=== PATIENT | male | born 1950 | race Caucasian/White ===

== ENCOUNTER 2017-10-04 10:06 | Day surgery (SDC) | payer MEDICARE, BC ==
[2017-09-30 10:12] VITALS: BMI 21.7
[~2017-10-04 10:06] MED LIST: LACTATED RINGERS 1,000 ML IV SCH; LIDOCAINE 1% 20 ML VIAL (10MG/ML) FOR IV START INTRADERMA PRN
[2017-10-04 10:41] VITALS: RESP 16; TEMP 97.4
[2017-10-04] MEDS ORDERED: PROPOFOL 10 MG/ML 20 ML VIAL IV ONE (11:16)
--- NOTE | 2017-10-04 11:25 | P.GSHP ---
History of Present Illness H&P Date: 10/04/17 Chief Complaint: Colon cancer screening Patient here today for colonoscopy. No bowel related complaints. Last colonoscopy 9 years ago. Sister was recently diagnosed with colon cancer 3 years ago. Past Medical History Past Medical History: No Reported History History of Any Multi-Drug Resistant Organisms: None Reported Past Surgical History: Orthopedic Surgery Additional Past Surgical History / Comment(s): RT KNEE ARTHROSCOPY, JUAN CATARACTS Past Anesthesia/Blood Transfusion Reactions: No Reported Reaction Smoking Status: Current every day smoker - Past Family History Sister(s) Family Medical History: Cancer Additional Family Medical History / Comment(s): COLON Father Family Medical History: Cancer Additional Family Medical History / Comment(s): PROSTATE,LUNG, BRAIN Brother(s) Family Medical History: Cancer Additional Family Medical History / Comment(s): PROSTATE, ONE BROTHER THYROID, ONE BROTHER BRAIN TUMOR Medications and Allergies Home Medications Medication Instructions Recorded Confirmed Type PARoxetine [Paxil] 20 mg PO DAILY 09/30/17 10/04/17 History Allergies Allergy/AdvReac Type Severity Reaction Status Date / Time codeine Allergy Rash/Hives Verified 10/04/17 10:41 Surgical - Exam Vital Signs Temp Pulse Resp BP Pulse Ox 97.4 F L 68 16 163/92 98 10/04/17 10:40 10/04/17 10:40 10/04/17 10:40 10/04/17 10:40 10/04/17 10:40 Physical exam: General: Well-developed, well-nourished HEENT: Normocephalic, sclerae nonicteric Abdomen: Nontender, nondistended Extremities: No edema Neuro: Alert and oriented Assessment and Plan (1) Colon cancer screening Narrative/Plan: Will proceed with colonoscopy at this time Current Visit: Yes Status: Acute Code(s): Z12.11 - ENCOUNTER FOR SCREENING FOR MALIGNANT NEOPLASM OF COLON SNOMED Code(s): 475490107
--- NOTE | 2017-10-04 11:44 | P.PCN ---
Date of Procedure: 10/04/17 Procedure(s) Performed: PREOPERATIVE DIAGNOSIS: Colon cancer screening POSTOPERATIVE DIAGNOSIS: Sigmoid colon polyp, diverticulosis PROCEDURE: Colonoscopy with snare polypectomy ANESTHESIA: MAC SURGEON: Mehul Wakefield M.D. SPECIMENS: One colon polyp ENDOSCOPIC PROCEDURE: The patient was placed on the endoscopy table in the left decubitus position. The Olympus colonoscope was inserted into the anus and passed under direct visualization to the base of the cecum. The appendiceal orifice was visualized. From that point the scope was slowly withdrawn inspecting all surfaces carefully. There were no neoplastic inflammatory or polypoid lesions throughout the cecum, ascending, transverse, and descending colon. In the sigmoid at 20 cm a pedunculated polyp was identified and removed using the snare with cautery technique. The remainder of the sigmoid and rectum appeared normal. There was moderate diverticulosis seen scattered throughout the colon. Digital rectal examination was normal. The patient was taken to the recovery room in stable condition per anesthesia guidelines. RECOMMENDATIONS: Wait biopsy results plan follow-up colonoscopy 5 years.
[2017-10-04 12:13] VITALS: BP 165/91; PULSE 55
== END 2017-10-04 12:26 | disposition home or self-care (01) ==
LOC: ORWHC2ENDO 10:06
PROVIDERS: ATTEND Surgery
DX: Z12.11 Encounter for screening for malignant neoplasm of colon (principal); D12.5 Benign neoplasm of sigmoid colon; K57.30 Diverticulosis of large intestine without perforation or abscess without bleeding; Z80.0 Family history of malignant neoplasm of digestive organs; F17.210 Nicotine dependence, cigarettes, uncomplicated; Z80.42 Family history of malignant neoplasm of prostate; Z80.1 Family history of malignant neoplasm of trachea, bronchus and lung; Z80.8 Family history of malignant neoplasm of other organs or systems; Z79.899 Other long term (current) drug therapy; Z88.5 Allergy status to narcotic agent
CPT/HCPCS: 88305; 45385; J2704

== ENCOUNTER → 2018-12-29 | Outpatient (CLI) | payer MEDICARE, BC ==
--- NOTE | 2018-12-29 13:09 | CT ---
EXAMINATION TYPE: CT abdomen wo con DATE OF EXAM: 12/29/2018 COMPARISON: None HISTORY: 68-year-old male Renal cyst TECHNIQUE: Contiguous axial scanning of the abdomen without IV contrast. Coronal and sagittal reconst ructions performed. CT DLP: 169.8 mGycm Automated exposure control for dose reduction was used. FINDINGS: Heart normal size without pericardial effusion. A few bands of atelectasis at the lung bases. No pleu ral effusion. Ectatic lower descending thoracic aorta at 2.8 cm. Infrarenal AAA measures 6.3 x 5.0 cm and should be compared to any available outside priors. This is a bilobed fusiform aneurysm. The more inferior ane urysm measures 3.7 x 3.5 cm. Hypodense hepatic lesions are nonspecific but probably represent cysts measuring up to 2.2 cm. Adrenal glands, spleen, pancreas show no gross abnormality for noncontrast CT. There is a diverticulu m of the second portion of the duodenum projecting into the pancreatic head region and a second proje cting towards the shonna hepatis measuring up to 4.8 cm. No dilated small bowel, free fluid, or free air. Normal appendix. Moderate to large stool burden with left hemicolonic diverticulosis. No pericolonic inflammatory barfield ge. No mesenteric or retroperitoneal lymphadenopathy seen. Bones: Degenerative disc disease L5-S1. No osseous destructive process. IMPRESSION: 1. NO DISCRETE RENAL LESION BY NONCONTRAST CT. 2. BILOBED FUSIFORM ANEURYSM INFRARENAL ABDOMINAL AORTA. SUPERIOR ANEURYSM MEASURES 6.3 X 5.0 CM AND THE INFERIOR ANEURYSM MEASURES 3.7 X 3.5 CM. APPROPRIATE EVALUATION AND MANAGEMENT RECOMMENDED. SHANNA RE TO MEASUREMENTS ON THE PATIENT'S OUTSIDE PRIORS. 3. MODERATE TO LARGE STOOL BURDEN. LEFT-SIDED COLONIC DIVERTICULOSIS WITHOUT EVIDENCE FOR ACUTE DIVER TICULITIS. A [place] level critical message alert has been initiated for Jame Brewer MD via the [facility] Results System on 12/29/2018 1:06 PM. This message alert has been sent to Jame Brewer MD via the preferences provided by the clinician for the receipt of Radiology Critical Findings. Selleration e ID [id number].
== END | disposition home or self-care (01) ==
LOC: RADCTMAIN 10:45
PROVIDERS: ATTEND Urology
DX: K57.30 Diverticulosis of large intestine without perforation or abscess without bleeding (principal); I71.4 Abdominal aortic aneurysm, without rupture
CPT/HCPCS: 74150

== ENCOUNTER → 2019-02-27 | Outpatient (CLI) | payer MEDICARE, BC ==
[2019-02-27 17:10] LABS: HGB 13.9 gm/dL (13.0-17.5); MCH 30.4 pg (25.0-35.0); MCHC 33.9 g/dL (31.0-37.0); MCV 89.5 fL (80.0-100.0); Mean Platelet Volume 7.6; Platelet Count 167 k/uL (150-450); RBC 4.57 m/uL (4.30-5.90); RDW 14.3 % (11.5-15.5); WBC 6.4 k/uL (3.8-10.6)
[2019-02-27 17:17] LABS: Potassium 4.4 mmol/L (3.5-5.1)
== END | disposition home or self-care (01) ==
LOC: LABPAT 15:45
PROVIDERS: ATTEND Internal Medicine Interventional Cardiology
DX: Z01.812 Encounter for preprocedural laboratory examination (principal); R94.39 Abnormal result of other cardiovascular function study
CPT/HCPCS: 80051; 82565; 84520; 85027

== ENCOUNTER 2019-03-02 05:49 | Day surgery (SDC) | payer MEDICARE, BC ==
[2019-02-28 11:15] VITALS: BMI 20.6
[~2019-03-02 05:49] MED LIST changes: +ALPRAZolam 0.25 MG TAB PO PRN; +ALPRAZolam 0.5 MG TAB PO PRN; +ASPIRIN 325 MG TAB PO STA; +ATORVASTATIN 80 MG TAB PO STA; -LACTATED RINGERS 1,000 ML IV SCH; -LIDOCAINE 1% 20 ML VIAL (10MG/ML) FOR IV START INTRADERMA PRN; +NITROGLYCERIN SL TABS 0.4 MG TAB SUBLINGUAL PRN; +SODIUM CHLORIDE 0.9% 1,000 ML in EMPTY BAG 1 BAG IV ONE
[2019-03-02] MEDS ORDERED: SODIUM CHLORIDE 0.9% 1,000 ML in EMPTY BAG 1 BAG IV ONE (05:54)
[2019-03-02] MEDS ORDERED: ALPRAZolam 0.25 MG TAB PO PRN (05:54)
[2019-03-02] MEDS ORDERED: ALPRAZolam 0.5 MG TAB PO PRN (05:54)
[2019-03-02] MEDS ORDERED: NITROGLYCERIN SL TABS 0.4 MG TAB SUBLINGUAL PRN ×2 (05:54→09:00)
[2019-03-02] MEDS ORDERED: ASPIRIN 325 MG TAB PO ONE (07:00)
[2019-03-02] MEDS ORDERED: ATORVASTATIN 80 MG TAB PO ONE (07:00)
[2019-03-02] MEDS ORDERED: fentaNYL (PF) 50 MCG/ML 2 ML AMP IVP ONE (07:49)
[2019-03-02] MEDS ORDERED: VERAPAMIL SYRINGE (5 MG/10 ML) INTRAARTER ONE (07:56)
[2019-03-02] MEDS ORDERED: BIVALIRUDIN BOLUS 250 MG/50 ML IV ONE (08:11)
[2019-03-02] MEDS ORDERED: CLOPIDOGREL 75 MG TAB PO ONE (08:12)
[2019-03-02] MEDS ORDERED: BIVALIRUDIN 250 MG in SODIUM CHLORIDE 0.9% 50 ML IV ONE (08:13)
[2019-03-02] MEDS ORDERED: ATROPINE SULFATE 0.1 MG/ML 10ML SYRINGE IV ONE ×2 (08:31→08:33)
[2019-03-02] MEDS ORDERED: IOPAMIDOL-370 125ML BTL INJ ONE (08:37)
[2019-03-02] MEDS ORDERED: IOPAMIDOL-370 100ML BTL INJ ONE (08:42)
[2019-03-02] MEDS ORDERED: ZOLPIDEM 5 MG TAB PO PRN (09:00)
[2019-03-02] MEDS ORDERED: MAG HYDROX/AL HYDROX/SIMETH 30 ML CUP PO PRN (09:00)
[2019-03-02] MEDS ORDERED: ATROPINE SULFATE 0.1 MG/ML 10ML SYRINGE IV PRN (09:00)
[2019-03-02] MEDS ORDERED: RX INFO: IV CONTRAST WAS GIVEN 1 EACH MISC MISCELLANE PRN (09:00)
[2019-03-02] MEDS ORDERED: SODIUM CHLORIDE 0.9% 1,000 ML IV SCH (09:00)
--- NOTE | 2019-03-02 09:54 | PTCA ---
PERCUTANEOUSTRANS CORORONARY ANGIOGRAPHY Mr. Gtz is a 68-year-old male with known history of hypertension, hyperlipidemia, chronic tobacco use, who was found to have a large abdominal aortic aneurysm. As part of his evaluation, had an abnormal myocardial perfusion imaging, underwent cardiac catheterization, was found to have critical stenosis involving the mid and distal right coronary artery in a calcified tortuous segment. In view of that, recommendation regarding angioplasty and stenting. The procedure as well as the risks and the complications were discussed with the patient who is in full understanding and agreement. PROCEDURE: A 6-Icelandic FR4 guiding catheter was introduced in the system. After cannulating the right coronary ostium, a 0.014 balanced medium weight J-wire was advanced across the mid lesion and positioned in the distal segment. Subsequently 0.014 whisper J- wire was advanced in position in the PDA. A 2.5 x 12 mm Trek balloon was advanced and inflation in the distal segment at 14 atmospheres to open the lesion was done. Subsequently an inflation in mid segment at a maximum of 8 atmospheres was done. Following that, the balloon was removed and attempts to advance a 2.5 x 12 mm Xience Lynn stent were unsuccessful. That balloon was removed and the BMW J-wire was removed and with the help of a GuideLiner catheter, the 2.5 x 12 mm Xience Lynn stent was advanced in the distal lesion, deployed, and post dilated at 16 atmospheres. Following that the balloon was removed and the GuideLiner was reintroduced and a 3.0 x 15 mm Xience Lynn stent was deployed in the mid segment and postdilated to 16 atmospheres. After the last inflation, after appropriate wait, the balloon and the guidewire were withdrawn back in the guiding catheter. Images were obtained, repeated. Those images reveal stable successful stenting. At that point, the guiding catheter, the balloon and the guidewire were removed. Left ventricular end-diastolic pressure was calculated. Following that, catheter and sheath were removed. Hemostasis was obtained with deployment of a TR band. There was no immediate complication. Patient was returned to his room in stable condition. Of note, the patient had transient bradycardia that was treated with atropine during the procedure. He had no chest discomfort or significant EKG changes. He received Angiomax per protocol as well as oral loading dose of clopidogrel. RESULTS: 1. Successful stenting of the mid right coronary artery with reduction of stenosis from 90% to 0%. 2. Successful stenting of the distal right coronary artery with reduction of stenosis from 95% to 0%. RECOMMENDATION: Patient will be continued on aspirin, Plavix, beta blockers, Krishna inhibitor and statin. The importance of dual antiplatelet treatment was discussed with the patient and his family who are in full understanding and agreement. Duration of procedure is 54 minutes. FELICITA / MEDINA: [id number] / MTDD
--- NOTE | 2019-03-02 10:09 | CC ---
CARDIAC CATHETERIZATION REPORT Mr. Gtz is a 68-year-old male with known history of hypertension, hyperlipidemia, diabetes mellitus, who recently was found to have large abdominal aortic aneurysm. As part of his evaluation, underwent a myocardial perfusion imaging, revealed reversible inferolateral wall defect. In view of that, recommendation made regarding cardiac catheterization. The procedures, risks, and complication were discussed with the patient who is in full understanding and agreement. PROCEDURE: Patient was brought to the chemical processing laborer in the fasting semi-sedated state after receiving fentanyl and Benadryl and achieving moderate conscious sedated state. Using Xylocaine anesthesia and Seldinger technique, a 6-Uzbek sheath was introduced in the right radial artery. Selective right and left coronary angiography were performed using 5- Uzbek 3.5 bend right and left Wilver catheter. Multiple views of the coronary artery including hemiaxial views obtained. Following that, angioplasty and stenting was performed. Following that, a 5-Uzbek tight pigtail catheter was introduced in the left ventricle and pressures were calculated. Following that, catheter and sheath were removed. Hemostasis was obtained with deployment of a TR band. There was no immediate complication. Patient is returned to his room in stable condition. Of note, patient received intra-arterial verapamil. FINDINGS: FLUOROSCOPY: There was severe calcification involving the left anterior descending artery, left main and the mid right coronary artery. LEFT MAIN: This is a short-size vessel bifurcating into left circumflex, left anterior descending artery. Left main coronary artery has no evidence of high-grade stenosis. LEFT ANTERIOR DESCENDING ARTERY: This is a large-sized vessel reaching toward the apex, giving rise to a large diagonal branch in the mid segment. The proximal left anterior descending artery has diffuse intimal disease of 30% to 40% There is a moderate plaque in the mid LAD of about 50%. The vessel is heavily calcified. LEFT CIRCUMFLEX: This is a nondominant vessel, giving rise to 2 obtuse marginal branches. The first one is large in caliber. The left circumflex is calcified and proximally has a 30% plaque. The rest of the vessel has no high-grade stenosis. RIGHT CORONARY ARTERY: This is a large dominant vessel, bifurcating distally into PDA and posterolateral segment and branches. The right coronary artery is tortuous and calcified in the mid segment, has a 90% stenosis. There is another 95% stenosis at the takeoff of the diagonal branch. The PLV is small in caliber. LEFT VENTRICULOGRAM: Left ventriculogram is not performed. HEMODYNAMICS: There was no gradient across the aortic valve. The left ventricular end- diastolic pressure was 8 - 12 mmHg. CONCLUSION: 1. Calcified coronary artery. 2. Critical stenosis involving the mid and distal right coronary artery. 3. Moderate disease in the left anterior descending artery and the left circumflex. RECOMMENDATION: In view of finding anatomy, I recommend proceeding with angioplasty and stenting of the right coronary artery. The procedures, risks, and complications were discussed with the patient who is in full understanding and agreement. MMODL / IJN: [id number] /
[2019-03-02] MEDS: ASPIRIN 81 MG PO SCH (11:42)
[2019-03-02] MEDS ORDERED: LISINOPRIL 10 MG TAB PO SCH (21:00)
[2019-03-03 08:36] VITALS: BP 122/76; PULSE 70; RESP 16; TEMP 97.9
[2019-03-03] MEDS: ASPIRIN 81 MG PO SCH (08:39)
[2019-03-03] MEDS ORDERED: CLOPIDOGREL 75 MG TAB PO SCH (09:00)
[2019-03-03] MEDS ORDERED: PARoxetine 20 MG TAB PO SCH (09:00)
[2019-03-03] MEDS ORDERED: ATORVASTATIN 40 MG TAB PO SCH (09:00)
--- NOTE | 2019-03-03 09:23 | PN ---
PROGRESS NOTE Mr. Gtz is a 68-year-old male with known history of hypertension, hyperlipidemia, chronic tobacco use, who was found to have a significant abdominal aortic aneurysm as part of his preop evaluation, was found to have evidence of inducible ischemia by nuclear scanning. He underwent cardiac catheterization, was found to have critical stenosis involving the proximal and mid right coronary artery. He underwent cardiac catheterization and angioplasty yesterday with stenting of the right coronary artery. He is doing well this morning. His breathing has been stable. He denies any dizziness or palpitation. He denies any nausea. He continued to be on aspirin once a day, Lipitor 40 mg daily, Plavix 75 mg daily, lisinopril 10 mg daily. PHYSICAL EXAMINATION: Blood pressure 122/70 with the heart rate in the 70s. LUNGS: Clear. HEART: Regular rate and rhythm. S1, S2. No S3. No rub. ABDOMEN: Soft, nontender. EXTREMITIES: No edema. Right radial pulse intact. EKG revealed no acute changes. Creatinine 1.4. IMPRESSION: 1. Status post stenting of the right coronary artery. 2. History of hypertension. 3. Hyperlipidemia. 4. Chronic tobacco use. RECOMMENDATION: Patient should be able to be discharged home today and followed as an outpatient. MMODL / IJN: [id number] /
== END 2019-03-03 10:08 | disposition home or self-care (01) ==
LOC: CATHCVL 05:49 → 3SCARD 08:45 → CATHCVL 03-03 10:08
PROVIDERS: ATTEND Internal Medicine Interventional Cardiology
DX: I25.10 Atherosclerotic heart disease of native coronary artery without angina pectoris (principal); I25.84 Coronary atherosclerosis due to calcified coronary lesion; I77.1 Stricture of artery; Z01.810 Encounter for preprocedural cardiovascular examination; E78.00 Pure hypercholesterolemia, unspecified; I12.9 Hypertensive chronic kidney disease with stage 1 through stage 4 chronic kidney disease, or unspecified chronic kidney disease; N18.9 Chronic kidney disease, unspecified; I73.9 Peripheral vascular disease, unspecified; E78.2 Mixed hyperlipidemia; F17.210 Nicotine dependence, cigarettes, uncomplicated; I71.4 Abdominal aortic aneurysm, without rupture; Z79.82 Long term (current) use of aspirin; Z79.899 Other long term (current) drug therapy; Z88.5 Allergy status to narcotic agent
CPT/HCPCS: 93458; 85347; 82565; C9600; C1769 ×2; C1887 ×2; C1725; C1874; J0461; J3010; J0583; Q9967 ×2

== ENCOUNTER → 2019-05-08 | Outpatient (CLI) | payer MEDICARE, BC ==
[2019-05-08 15:12] LABS: Basophils % (A) 1 %; Eosinophils # (A) 0.2 k/uL (0-0.7); Eosinophils % (A) 4 %; HCT 39.5 % (39.0-53.0); HGB 13.5 gm/dL (13.0-17.5); Lymphocytes # (A) 1.4 k/uL (1.0-4.8); Lymphocytes % (A) 27 %; MCHC 34.1 g/dL (31.0-37.0); MCV 90.9 fL (80.0-100.0); Mean Platelet Volume 7.2; Monocytes # (A) 0.3 k/uL (0-1.0); Monocytes % (A) 5 %; Neutrophils # (A) 3.2 k/uL (1.3-7.7); Neutrophils % (A) 62 %; Platelet Count 154 k/uL (150-450); RBC 4.34 m/uL (4.30-5.90); RDW 13.4 % (11.5-15.5); WBC 5.2 k/uL (3.8-10.6)
[2019-05-08 15:22] LABS: Potassium 4.2 mmol/L (3.5-5.1)
[2019-05-08 15:30] LABS: Partial Thromboplastin Time 24.3 sec (22.0-30.0); Prothrombin Time 10.7 sec (9.0-12.0)
== END | disposition home or self-care (01) ==
LOC: LABPAT 14:27
PROVIDERS: ATTEND Surgery
DX: Z01.812 Encounter for preprocedural laboratory examination (principal); I71.4 Abdominal aortic aneurysm, without rupture
CPT/HCPCS: 36415; 80051; 85025; 85610; 85730

== ENCOUNTER 2019-05-09 07:34 | Inpatient (IN) | payer MEDICARE, BC ==
[2019-05-03 15:48] VITALS: BMI 19.8
[~2019-05-09 07:34] MED LIST changes: -ALPRAZolam 0.25 MG TAB PO PRN; -ALPRAZolam 0.5 MG TAB PO PRN; -ASPIRIN 325 MG TAB PO STA; -ATORVASTATIN 80 MG TAB PO STA; +DEXAMETHASONE SOD PHOSPHATE 10 MG/ML 1 ML VIAL IV ONE; +LACTATED RINGERS 1,000 ML IV SCH; +LIDOCAINE 1% 20 ML VIAL (10MG/ML) FOR IV START INTRADERMA PRN; +METOCLOPRAMIDE 5 MG/ML 2 ML VIAL IVP PRN; +MORPHINE SULFATE 2 MG/ML SYRINGE IV PRN; -NITROGLYCERIN SL TABS 0.4 MG TAB SUBLINGUAL PRN; +ONDANSETRON 4 MG/2 ML VIAL IVP ONE; +ONDANSETRON 4 MG/2 ML VIAL IVP PRN
[2019-05-09 08:52] LABS: Calcium 9.6 mg/dL (8.4-10.2); Potassium 4.9 mmol/L (3.5-5.1)
[2019-05-09] MEDS ORDERED: GLYCOPYRROLATE 0.2 MG/ML 2 ML VIAL ONE (08:56)
[2019-05-09] MEDS ORDERED: PROTAMINE SULFATE 10 MG/ML 5 ML VIAL IV ONE (08:56)
[2019-05-09] MEDS ORDERED: PROPOFOL 10 MG/ML 20 ML VIAL IV ONE (08:56)
[2019-05-09] MEDS ORDERED: ePHEDrine SULFATE/0.9% NACL/PF 50 MG/5 ML SYRINGE IV ONE (08:56)
[2019-05-09] MEDS ORDERED: HEPARIN SODIUM,PORCINE 10,000 UNIT/ML 1 ML VIAL ONE (08:56)
[2019-05-09] MEDS ORDERED: NEOSTIGMINE 1 MG/ML 10 ML VIAL ONE (08:56)
[2019-05-09] MEDS ORDERED: fentaNYL (PF) 50 MCG/ML 2 ML AMP ONE (08:56)
[2019-05-09] MEDS ORDERED: MIDAZOLAM 2 MG/2 ML VIAL ONE (08:56)
[2019-05-09] MEDS ORDERED: PHENYLEPHRINE-0.9% NACL SYG 1 MG/10 ML SYRINGE ONE (08:56)
[2019-05-09] MEDS ORDERED: LIDOCAINE 1% INJ 10MG/ML (10 ML MDV) SQ ONE ×2 (09:25→09:29)
[2019-05-09] MEDS ORDERED: LACTATED RINGERS 1,000 ML IV ONE ×2 (09:55→10:41)
[2019-05-09] MEDS ORDERED: IOPAMIDOL-250 100ML BTL INTRAARTER ONE ×2 (10:30→11:53)
[2019-05-09] MEDS ORDERED: HEPARIN SODIUM,PORCINE 2,500 UNIT in SODIUM CHLORIDE 0.9% 250 ML IRRIGATION ONE (12:10)
[2019-05-09] MEDS ORDERED: ceFAZolin 4 GM, BACITRACIN 200,000 UNIT in SODIUM CHLORIDE 0.9% 1,000 ML IRRIGATION ONE (12:20)
[2019-05-09] MEDS ORDERED: NITROGLYCERIN SL TABS 0.4 MG TAB SUBLINGUAL PRN (13:59)
--- NOTE | 2019-05-09 14:08 | P.OP ---
Date of Procedure: 05/09/19 Preoperative Diagnosis: Infrarenal AAA Postoperative Diagnosis: 1. 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 Hemodynamic instability Procedure(s) Performed: #1 endovascular aortic repair with aorta modified ovation iX unibody graft. #2 attempted revascularization of the left common iliac artery #3 right femoral to left femoral artery bypass Implants: Ovation Ix graft Kenedy 8 mm propatent graft Anesthesia: GETA Surgeon: Mitchel Selby Oil Tank Car Cleaner #1: Suyapa Belcher Estimated Blood Loss (ml): 300 IV fluids (ml): 2,800 Pathology: none sent Condition: stable Disposition: PACU Indications for Procedure: 69-year-old gentleman presents to the hospital for elective endovascular aortic repair secondary to enlarging aneurysm now measuring 5.7x5.2cm infrarenal AAA. Patient was seen in the office and discussion was had about surgical intervention including open versus endovascular repair. After review of the CAT scan it appeared that he had some calcifications noted at the iliacs and aorta but otherwise no abnormalities. He was a candidate for endovascular aortic repair and presents today for such repair. He did not complain of any lower extremity pain with ambulation or at rest consistent with claudication or peripheral arterial disease. Operative Findings: Totally occluded left common iliac artery and large infrarenal abdominal aortic aneurysm Description of Procedure: After written informed consent was obtained the patient all risks benefits competitions were described the patient is brought to the Plant Tour Guide laid in a supine position the area of the groins and abdomen were prepped and draped in usual sterile fashion after appropriate anesthetic was performed per the anesthesiologist. A timeout was performed normal fashion antibiotics were administered prior to any access. Utilizing ultrasound bilateral femoral arteries were located and shown to have some calcification on the anterior aspect therefore soft portion of the artery was located and utilizing a multipurpose needle and ultrasound guidance the arteries were accessed. 035 Glidewire were then placed followed by Perclose closure device on the right which were deployed in normal fashion. An 8-East Timorese sheath was then placed in the right groin. 035 Glidewire was placed in the left groin and met resistance and appeared to be occluded therefore a 6-East [place]orese sheath was placed and retrograde angiogram was obtained demonstrating total occlusion of the iliac artery. At that time attempt was placed crossing this lesion to get into the aorta. An aortogram was obtained after a pigtail catheter was placed in the aorta demonstrating the occlusion. Patient was then heparinized and followed with ACTs. After multiple failed attempts to cross the lesion with 035 Glidewire and quick cross as well as multiple sheaths including a destino and wires including an astato .018 wire patient became hypotensive after crossing through the iliac lesion. At this time it was determined that he might have had a small perforation therefore a pigtail catheter was placed and angiogram was obtained demonstrating no evidence of extravasation but patient was still hypotensive and therefore a aortic balloon was placed for occlusion. At that time was determined to place a unibody graft and perform a fem-fem bypass. There were no unibody grafts available in the accounting as well as either in [place] as the wrap was contacted and therefore the back table revision of the ovation main body was performed. Utilizing 2-0 silk suture the contralateral limb of the main body was occluded after partial deployment on the back table. Multiple silk sutures were placed to make sure that the contralateral lumen did not fill. Once completed the sheath in the right groin was then switched for a 16-[place]orese sheath. The main body 34 mm ovation modified graft was then placed over a stiff wire at the left renal artery and deployed in normal fashion. Polymer was then infused for the rings to seal. This was allowed for 14 minutes at which point the main body was completely deployed and the deployment sheath was removed. Utilizing the Coda balloon angioplasty at the ceiling rings was performed. After removal of the balloon and a pigtail catheter was placed and a retrograde angiogram was obtained for the internal iliac artery and a 14 x 140 mm ovation limb was then deployed in normal fashion. A 12 x 40 mm balloon was then placed and the overlaps were angioplastied. Pigtail catheter was once again placed and finally gram was obtained demonstrating good seal of the aneurysm without any evidence of endoleak. There was occlusion of the left common iliac artery with retrograde filling of the femoral and profundus via multiple collaterals. At that time it was determined to place perform a fem-fem bypass which had been previously discussed with the patient's family prior to the unibody deployment. Bilateral incisions were then created in an oblique fashion overlying the existing sheath and dissection was carried down to the femoral arteries. Complete dissection of the common femoral, superficial femoral and profundus was performed and controlled with vessel loops. Once controlled the sheath were removed. An 8 x 40 mm Kenedy graft was then chosen and tunneled between the groins. Arteriotomy was then created with 11 blade scalpel and extended with Pott Burns scissors bilaterally. The graft was then cut to the appropriate length and spatulated in normal fashion and end-to-side anastomosis was created with 5-0 Prolene suture in a running fashion to both femoral arteries. Prior to last sutures being placed the graft was de-aired and backbleeding was brisk. Final sutures were placed to secure the anastomosis. There is good palpable pulse within the graft as well as the femoral arteries. The areas were then copiously irrigated with antibiotic solution hemostasis was assured with Surgicel. The incisions were then closed in a multilayer fashion skin was cleansed and protamine and dressings were placed. Patient had multiphasic signal DP on the left and PT on the right and feet were warm with good cap refill. Patient on procedure well and was sent to PACU for recovery
[2019-05-09 15:56] LABS: Glucose,Whole Blood 125 mg/dL (75-99)
[2019-05-09 16:02] LABS: Potassium 3.7 mmol/L (3.5-5.1)
[2019-05-09 16:10] LABS: Calcium 6.4 mg/dL (8.4-10.2)
[2019-05-09 16:13] LABS: Basophils % (A) 0 %; Eosinophils # (A) 0.1 k/uL (0-0.7); Eosinophils % (A) 1 %; HCT 25.5 % (39.0-53.0); Lymphocytes # (A) 0.8 k/uL (1.0-4.8); Lymphocytes % (A) 12 %; MCH 31.5 pg (25.0-35.0); MCHC 34.5 g/dL (31.0-37.0); MCV 91.1 fL (80.0-100.0); Mean Platelet Volume 7.9; Monocytes # (A) 0.4 k/uL (0-1.0); Monocytes % (A) 6 %; Neutrophils # (A) 5.5 k/uL (1.3-7.7); Neutrophils % (A) 80 %; Platelet Count 100 k/uL (150-450); WBC 6.8 k/uL (3.8-10.6)
[2019-05-09 16:14] LABS: HGB 8.8 gm/dL (13.0-17.5)
[2019-05-09] MEDS ORDERED: ONDANSETRON 4 MG/2 ML VIAL IVP PRN (16:53)
[2019-05-09] MEDS: HYDROmorphone 0.5 MG/0.5 ML SYRINGE IVP PRN ×2 (17:07→20:17)
--- NOTE | 2019-05-09 17:38 | P.CNPUL ---
History of Present Illness Consult date: 05/09/19 Requesting physician: Suyapa Belcher Reason for consult: other Chief complaint: ICU management History of present illness: This is a 69-year-old white male patient of Dr. ernandez with past medical history of hypertension, hyperlipidemia, diabetes mellitus, coronary artery disease with recent stenting of the right coronary artery. Patient was recently diagnosed with a large abdominal aortic aneurysm on the CT of the abdomen in December 2018 which was done as part of routine physical, which revealed infrarenal abdominal aortic aneurysm measuring 6.3 x 5.0 cm, and this was a bilobed fusiform aneu rysm, the more inferior aneurysm measuring 3.7 x 3.5 cm. Patient complained of occasional left leg discomfort with walking. Patient was referred to vascular surgery and today on 05/09/2019 patient underwent endovascular aortic repair with a right unibody graft, attempted revascularization of the left common iliac artery which was 100% occluded and right femoral to left femoral artery bypass. Following the recovery phase patient is seen in the intensive care unit. Resting comfortably in bed, did experience some transient hypotension in the recovery and IV fluids were given, with improvement of patient's blood pressure. Postop blood work including CBC and BMP are pending. Patient is on a couple liters of O2 per nasal cannula, his pulse ox of 97, he is afebrile, blood pressure is 100/36, has improved with IV fluids. Review of Systems All systems: negative Constitutional: Denies chills, Denies fever Eyes: bilateral discharge, denies blurred vision, denies pain Ears, nose, mouth and throat: Denies headache, Denies sore throat Cardiovascular: Reports claudication, Denies chest pain, Denies shortness of breath Respiratory: Denies cough Gastrointestinal: Denies abdominal pain, Denies diarrhea, Denies nausea, Denies vomiting Musculoskeletal: Denies myalgias Integumentary: Denies pruritus, Denies rash Neurological: Denies numbness, Denies weakness Psychiatric: Denies anxiety, Denies depression Endocrine: Denies fatigue, Denies weight change Past Medical History Past Medical History: Hyperlipidemia, Hypertension Additional Past Medical History / Comment(s): aortic aneurysm, hx ulcer 30 yrs ago, "borderline cholesterol", History of Any Multi-Drug Resistant Organisms: None Reported Past Surgical History: Heart Catheterization With Stent, Orthopedic Surgery Additional Past Surgical History / Comment(s): RT KNEE ARTHROSCOPY, JUAN CATARACTS, two cardiac stents Past Anesthesia/Blood Transfusion Reactions: No Reported Reaction Date of Last Stent Placement:: 03/10/19 Smoking Status: Current every day smoker - Past Family History Sister(s) Family Medical History: Cancer Additional Family Medical History / Comment(s): COLON Father Family Medical History: Cancer Additional Family Medical History / Comment(s): PROSTATE,LUNG, BRAIN Brother(s) Family Medical History: Cancer Additional Family Medical History / Comment(s): PROSTATE with bone cancer, ONE BROTHER THYROID, ONE BROTHER BRAIN TUMOR Mother Family Medical History: Deep Vein Thrombosis (DVT) Medications and Allergies Home Medications Medication Instructions Recorded Confirmed Type PARoxetine [Paxil] 20 mg PO DAILY 09/30/17 05/09/19 History Aspirin [Adult Low Dose Aspirin EC] 81 mg PO DAILY 02/28/19 05/09/19 History Lisinopril [Zestril] 10 mg PO HS 02/28/19 05/09/19 History amLODIPine [Norvasc] 5 mg PO DAILY 02/28/19 05/09/19 History Clopidogrel [Plavix] 75 mg PO DAILY #90 tab 03/03/19 05/09/19 Rx Nitroglycerin Sl Tabs [Nitrostat] 0.4 mg SUBLINGUAL Q5M PRN #25 tab 03/03/19 05/09/19 Rx Rosuvastatin Calcium [Crestor] 5 mg PO DAILY 05/03/19 05/09/19 History Allergies Allergy/AdvReac Type Severity Reaction Status Date / Time codeine Allergy Rash/Hives Verified 05/09/19 07:56 Physical Exam Vitals: Vital Signs Temp Pulse Pulse Resp BP BP Pulse Ox 05/09/19 15:12 46 L 16 81/43 93/54 96 05/09/19 14:45 54 L 14 82/54 92/38 98 05/09/19 14:30 55 L 14 90/59 102/41 97 05/09/19 14:13 97.0 F L 57 L 16 99/55 100/40 99 05/09/19 07:59 97.8 F 61 18 171/81 98 Intake and Output 05/09/19 05/09/19 05/09/19 06:59 14:59 22:59 Intake Total 1827 Output Total 503 Balance 1324 Intake: IV 1827 Output: Urine 500 Estimated Blood Loss 3 GENERAL EXAM: Alert, pleasant, 69-year-old white male, on 2 L of oxygen, with a pulse ox of 97% comfortable in no apparent distress. HEAD: Normocephalic/atraumatic. EYES: Normal reaction of pupils, equal size. Conjunctiva pink, sclera white. NOSE: Clear with pink turbinates. THROAT: No erythema or exudates. NECK: No masses, no JVD, no thyroid enlargement, no adenopathy. CHEST: No chest wall deformity. Symmetrical expansion. LUNGS: Equal air entry with no crackles, wheeze, rhonchi or dullness. CVS: Regular rate and rhythm, normal S1 and S2, no gallops, no murmurs, no rubs ABDOMEN: Soft, nontender. No hepatosplenomegaly, normal bowel sounds, no guarding or rigidity. EXTREMITIES: No clubbing, no edema, no cyanosis, 2+ pulses and upper and lower extremities. Bilateral groin incisions are covered with wound vacs, clean dry and intact, soft, pedal pulses palpable MUSCULOSKELETAL: Muscle strength and tone normal. SPINE: No scoliosis or deformity SKIN: No rashes CENTRAL NERVOUS SYSTEM: Alert and oriented -3. No focal deficits, tone is normal in all 4 extremities. PSYCHIATRIC: Alert and oriented -3. Appropriate affect. Intact judgment and insight. Results - Laboratory Findings CBC and BMP: 05/09/19 15:06 05/09/19 15:06 Abnormal lab findings: Abnormal Labs 05/08/19 05/09/19 14:46 07:50 BUN 30 H Creatinine 1.63 H Glucose 104 H Crossmatch See Detail Assessment and Plan Plan: Assessment: #1. Infrarenal abdominal aortic aneurysm with left common iliac artery occlusion, status post endovascular aortic repair with Uni body graft, attempted revascularization of the left common iliac artery and right serum to left femoral artery bypass. Postop day 0 #2. Postoperative hypotension, improved with IV fluids, postop blood work is pending #3. Hypertension #4. Hyperlipidemia #5. Diabetes mellitus type 2 #6. Coronary artery disease status post right coronary artery stenting 2 in February 2019 #7. Peripheral vascular disease #8. Tobacco use, chronic and ongoing, currently down to 5-6 cigarettes a day, carried 57 pack year history #9. Chronic kidney disease stage IIIB Plan: Continue close hemodynamic monitoring, postop blood work is pending, continue with fluid infusions, monitor urine output. Antibiotics per vascular surgery, maintain pain control, home medications have been restarted. Denies any chronic lung condition, despite extensive smoking history. Smoking cessation was again discussed with patient and patient states he significantly cut back with a goal of complete cessation. Breathing is stable. We'll continue to follow I performed a history & physical examination of the patient and discussed their management with my nurse practitioner, Jaky Rao. I reviewed the nurse practitioner's note and agree with the documented findings and plan of care. Lung sounds are positive for clear breath sounds. The findings and the impression was discussed with the patient. I attest to the documentation by the nurse practitioner.
[2019-05-09] MEDS: LISINOPRIL 10 MG TAB PO SCH (20:17)
[2019-05-09] MEDS: LACTATED RINGERS 1,000 ML IV SCH (20:20)
[2019-05-10] MEDS: HYDROmorphone 0.5 MG/0.5 ML SYRINGE IVP PRN ×7 (00:58→23:28)
[2019-05-10 05:00] LABS: Basophils % (A) 0 %; Eosinophils # (A) 0.1 k/uL (0-0.7); Eosinophils % (A) 1 %; HCT 29.6 % (39.0-53.0); Lymphocytes # (A) 0.8 k/uL (1.0-4.8); Lymphocytes % (A) 12 %; MCHC 33.9 g/dL (31.0-37.0); MCV 91.4 fL (80.0-100.0); Mean Platelet Volume 7.7; Monocytes # (A) 0.3 k/uL (0-1.0); Monocytes % (A) 4 %; Neutrophils # (A) 5.7 k/uL (1.3-7.7); Neutrophils % (A) 82 %; Platelet Count 113 k/uL (150-450); RBC 3.24 m/uL (4.30-5.90); RDW 13.5 % (11.5-15.5)
[2019-05-10 05:22] LABS: Albumin 2.7 g/dL (3.5-5.0); Calcium 8.3 mg/dL (8.4-10.2); Potassium 4.5 mmol/L (3.5-5.1); Total Bilirubin 0.4 mg/dL (0.2-1.3); Total Protein 4.6 g/dL (6.3-8.2)
[2019-05-10] MEDS: LACTATED RINGERS 1,000 ML IV SCH ×3 (06:19→23:43)
[2019-05-10] MEDS: amLODIPine 5 MG TAB PO SCH (08:17)
[2019-05-10] MEDS: ATORVASTATIN 10 MG TAB PO SCH (08:17)
[2019-05-10] MEDS: ASPIRIN 81 MG PO SCH (08:17)
[2019-05-10] MEDS: CLOPIDOGREL 75 MG TAB PO SCH (08:17)
[2019-05-10] MEDS: PARoxetine 20 MG TAB PO SCH (08:17)
--- NOTE | 2019-05-10 08:24 | P.PN ---
Subjective Progress Note Date: 05/10/19 Patient seen and examined. Overall feeling okay. Pain in lower abdomen/pelvis at the area of the incisions and tunneled bypass. No abdominal pain, back pain is improved. Objective - Vital Signs Vital signs: Vital Signs Temp 97.8 F 05/10/19 04:00 Pulse 66 05/10/19 07:00 Resp 15 05/10/19 07:00 BP 110/60 05/10/19 04:00 Pulse Ox 96 05/10/19 07:00 Intake & Output 05/09/19 05/10/19 05/10/19 18:59 06:59 18:59 Intake Total 2051 1500 250 Output Total 703 480 65 Balance 1349 1020 185 Weight 75.7 kg Intake: IV 2051 1500 250 Lactated Ringers 1,000 ml 225 1500 250 @ 100 mls/hr IV .Q10H [facility] Rx#:[id number] Output: Urine 700 480 65 Estimated Blood Loss 3 Other: Voiding Method Indwelling Catheter Indwelling Catheter ABP, PAP, CO, CI - Last Documented Arterial Blood Pressure 117/49 - Exam No acute distress resting in bed comfortably. Heart is regular in rate and rhythm Lungs are clear bilaterally Abdomen soft, nontender, nondistended Bilateral groin incisions are clean, dry, intact. Dressings in place. Bilateral lower extremity is warm and dry, multiphasic signals at DP and PT bilaterally - Labs CBC & Chem 7: 05/10/19 04:10 05/10/19 04:10 Labs: Abnormal Lab Results - Last 24 Hours (Table) 05/08/19 05/09/19 05/09/19 Range/Units 14:46 07:50 15:06 RBC 2.80 L (4.30-5.90) m/uL Hgb 8.8 L D (13.0-17.5) gm/dL Hct 25.5 L (39.0-53.0) % Plt Count 100 L (150-450) k/uL Lymphocytes # 0.8 L (1.0-4.8) k/uL Sodium (137-145) mmol/L Chloride (98-107) mmol/L Carbon Dioxide (22-30) mmol/L BUN 30 H (9-20) mg/dL Creatinine 1.63 H (0.66-1.25) mg/dL Glucose 104 H (74-99) mg/dL POC Glucose (mg/dL) (75-99) mg/dL Calcium (8.4-10.2) mg/dL ALT (21-72) U/L Total Protein (6.3-8.2) g/dL Albumin (3.5-5.0) g/dL Crossmatch See Detail 05/09/19 05/09/19 05/10/19 Range/Units 15:06 15:53 04:10 RBC (4.30-5.90) m/uL Hgb (13.0-17.5) gm/dL Hct (39.0-53.0) % Plt Count (150-450) k/uL Lymphocytes # (1.0-4.8) k/uL Sodium 136 L (137-145) mmol/L Chloride 117 H (98-107) mmol/L Carbon Dioxide 17 L (22-30) mmol/L BUN 23 H 28 H (9-20) mg/dL Creatinine 1.43 H (0.66-1.25) mg/dL Glucose 109 H 122 H (74-99) mg/dL POC Glucose (mg/dL) 125 H (75-99) mg/dL Calcium 6.4 L* 8.3 L (8.4-10.2) mg/dL ALT 17 L (21-72) U/L Total Protein 4.6 L (6.3-8.2) g/dL Albumin 2.7 L (3.5-5.0) g/dL Crossmatch 05/10/19 Range/Units 04:10 RBC 3.24 L (4.30-5.90) m/uL Hgb 10.0 L (13.0-17.5) gm/dL Hct 29.6 L (39.0-53.0) % Plt Count 113 L (150-450) k/uL Lymphocytes # 0.8 L (1.0-4.8) k/uL Sodium (137-145) mmol/L Chloride (98-107) mmol/L Carbon Dioxide (22-30) mmol/L BUN (9-20) mg/dL Creatinine (0.66-1.25) mg/dL Glucose (74-99) mg/dL POC Glucose (mg/dL) (75-99) mg/dL Calcium (8.4-10.2) mg/dL ALT (21-72) U/L Total Protein (6.3-8.2) g/dL Albumin (3.5-5.0) g/dL Crossmatch Assessment and Plan Assessment: Postoperative day #1 from endovascular aortic unibody with femoral to femoral bypass Chronic occlusion left common iliac artery Plan: At this time patient we downgraded to selective stepdown. Arterial line can be removed. We would like him up to the chair and activity as tolerated. We'll remove the Belcher. He can continue his diet as tolerated. Likely plan for discharge in next 24 hours if continued stability and pain control
[2019-05-10] MEDS ORDERED: NON FORMULARY DRUG (Aspirin [Adult Low Dose Aspirin Ec] 81 MG) PO SCH (09:00)
--- NOTE | 2019-05-10 10:16 | CDI ---
PLEASE ASK DICTATING PHYSICIAN, DR BUTTS Documentation Clarification Form Date: 05/10/2019 9:56:27 AM From: Venessa Arora, CCS, CCDS Admit Date: 05/09/2019 7:34:00 AM Patient Name: Salvatore Gtz Visit Number: [id number] Discharge Date: ATTENTION: The Clinical Documentation Specialists (CDI) and [facility] Coding Staff appreciate your assistance in clarifying documentation. Please respond to the clarification below the line at the bottom and electronically sign. The CDI & [facility] Coding staff will review the response and follow-up if needed. Please note: Queries are made part of the Legal Health Record. If you have any questions, please contact the author of this message via ITS. Dr. Suyapa Belcher: Per the procedure note: "...patient became hypotensive after crossing through the iliac lesion. At this time it was determined that he might have had a small perforation therefore a pigtail catheter was placed and angiogram was obtained demonstrating no evidence of extravasation but patient was still hypotensive and therefore a aortic balloon was placed for occlusion." Per the medical consult: "Postoperative hypotension, improved with IV fluids, postop blood work is pending." Patients Admitting Diagnosis: Totally occluded left common iliac artery & large infrarenal abdominal aortic aneurysm. Post-Operative Diagnosis: Same Procedure performed: Endovascular aortic unibody with femoral to femoral bypass, Chronic occlusion left common iliac artery History/Risk Factors: Hx AAA, Hypertension, Hyperlipidemia, DM II, CAD w/stent to RCA, PVD, Smoker, CKD III. Clinical Indicators: Per above postoperative notes. Treatment: IV fluids intraoperatively & posteroperatively. IV Zofran, IV fluids, IV Cefazolin, IV heparin, IV Lactated Ringers, IV Dilaudid In order to accurately reflect this patients severity of illness, please clarify if the post-operative diagnosis is: An expected post-procedural or post-surgical condition, please specify reason or cause. An unexpected post-procedural or post-surgical condition related to surgical care (a complication of care), please specify cause if known. An unexpected post-procedural or post-surgical condition, related to the patients underlying medical comorbidities Other, please specify ____ Unable to determine (Last Revision: November 2018) MTDD
--- NOTE | 2019-05-10 10:53 | P.PN ---
Subjective Progress Note Date: 05/10/19 Principal diagnosis: Abdominal aortic aneurysm status post endovascular aortic repair. This is a 69-year-old white male patient of Dr. Pickett with past medical history of hypertension, hyperlipidemia, diabetes mellitus, coronary artery disease with recent stenting of the right coronary artery. Patient was recently diagnosed with a large abdominal aortic aneurysm on the CT of the abdomen in December 2018 which was done as part of routine physical, which revealed infrarenal abdominal aortic aneurysm measuring 6.3 x 5.0 cm, and this was a bilobed fusiform aneurysm, the more inferior aneurysm measuring 3.7 x 3.5 cm. Patient complained of occasional left leg discomfort with walking. Patient was referred to vascular surgery and today on 05/09/2019 patient underwent endovascular aortic repair with a right unibody graft, attempted revascularization of the left common iliac artery which was 100% occluded and right femoral to left femoral artery bypass. Following the recovery phase patient is seen in the intensive care unit. Resting comfortably in bed, did experience some transient hypotension in the recovery and IV fluids were given, with improvement of patient's blood pressure. Postop blood work including CBC and BMP are pending. Patient is on a couple liters of O2 per nasal cannula, his pulse ox of 97, he is afebrile, blood pressure is 100/36, has improved with IV fluids. The patient is seen today 05/10/2019 in follow-up in the intensive care unit. He is currently sitting up in a chair at the bedside. Awake and alert in no acute distress. He is having some lower abdominal and pelvis discomfort. Incisions clean dry well approximated. Dressings intact. Peripheral pulses are intact. No shortness of breath, cough or congestion. Currently on room air. Afebrile. Hemodynamically stable. White count 7.0. Hemoglobin 10.0. Creatinine 1.43. Continued on lactated Ringer's at 125 ML's per hour. Objective - Vital Signs Vital signs: Vital Signs Temp 98.1 F 05/10/19 08:00 Pulse 57 L 05/10/19 10:00 Resp 12 05/10/19 10:00 BP 106/57 05/10/19 10:00 Pulse Ox 97 05/10/19 10:00 Intake & Output 05/09/19 05/10/19 05/10/19 18:59 06:59 18:59 Intake Total 2052 1500 500 Output Total 703 480 105 Balance 1349 1020 395 Weight 75.7 kg Intake: IV 2051 1500 500 Lactated Ringers 1,000 ml 225 1500 500 @ 100 mls/hr IV .Q10H [facility] Rx#:[id number] Output: Urine 700 480 105 Estimated Blood Loss 3 Other: Voiding Method Indwelling Catheter Indwelling Catheter Indwelling Catheter ABP, PAP, CO, CI - Last Documented Arterial Blood Pressure 130/43 - Exam GENERAL EXAM: Alert, pleasant, 69-year-old gentleman, on 2 L of oxygen, with a pulse ox of 94% comfortable in no apparent distress. HEAD: Normocephalic/atraumatic. EYES: Normal reaction of pupils, equal size. Conjunctiva pink, sclera white. NOSE: Clear with pink turbinates. THROAT: No erythema or exudates. NECK: No masses, no JVD, no thyroid enlargement, no adenopathy. CHEST: No chest wall deformity. Symmetrical expansion. LUNGS: Equal air entry with no crackles, wheeze, rhonchi or dullness. CVS: Regular rate and rhythm, normal S1 and S2, no gallops, no murmurs, no rubs ABDOMEN: Soft, nontender. No hepatosplenomegaly, normal bowel sounds, no guarding or rigidity. EXTREMITIES: No clubbing, no edema, no cyanosis, 2+ pulses and upper and lower extremities. Bilateral groin incisions are covered with wound vacs, clean dry and intact, soft, pedal pulses palpable MUSCULOSKELETAL: Muscle strength and tone normal. SPINE: No scoliosis or deformity SKIN: No rashes CENTRAL NERVOUS SYSTEM: No focal deficits, tone is normal in all 4 extremities. PSYCHIATRIC: Alert and oriented -3. Appropriate affect. Intact judgment and insight. - Labs CBC & Chem 7: 05/10/19 04:10 05/10/19 04:10 Labs: Abnormal Lab Results - Last 24 Hours (Table) 05/08/19 05/09/19 05/09/19 Range/Units 14:46 15:06 15:06 RBC 2.80 L (4.30-5.90) m/uL Hgb 8.8 L D (13.0-17.5) gm/dL Hct 25.5 L (39.0-53.0) % Plt Count 100 L (150-450) k/uL Lymphocytes # 0.8 L (1.0-4.8) k/uL Sodium 136 L (137-145) mmol/L Chloride 117 H (98-107) mmol/L Carbon Dioxide 17 L (22-30) mmol/L BUN 23 H (9-20) mg/dL Creatinine (0.66-1.25) mg/dL Glucose 109 H (74-99) mg/dL POC Glucose (mg/dL) (75-99) mg/dL Calcium 6.4 L* (8.4-10.2) mg/dL ALT (21-72) U/L Total Protein (6.3-8.2) g/dL Albumin (3.5-5.0) g/dL Crossmatch See Detail 05/09/19 05/10/19 05/10/19 Range/Units 15:53 04:10 04:10 RBC 3.24 L (4.30-5.90) m/uL Hgb 10.0 L (13.0-17.5) gm/dL Hct 29.6 L (39.0-53.0) % Plt Count 113 L (150-450) k/uL Lymphocytes # 0.8 L (1.0-4.8) k/uL Sodium (137-145) mmol/L Chloride (98-107) mmol/L Carbon Dioxide (22-30) mmol/L BUN 28 H (9-20) mg/dL Creatinine 1.43 H (0.66-1.25) mg/dL Glucose 122 H (74-99) mg/dL POC Glucose (mg/dL) 125 H (75-99) mg/dL Calcium 8.3 L (8.4-10.2) mg/dL ALT 17 L (21-72) U/L Total Protein 4.6 L (6.3-8.2) g/dL Albumin 2.7 L (3.5-5.0) g/dL Crossmatch Assessment and Plan Assessment: Assessment: #1. Infrarenal abdominal aortic aneurysm with left common iliac artery occlusion, status post endovascular aortic repair with Uni body graft, attempted revascularization of the left common iliac artery and right serum to left femoral artery bypass. Postop day #1. #2. Postoperative hypotension, improved with IV fluids, postop hemoglobin 8.8. Currently 10.0. No transfusion required. #3. Hypertension #4. Hyperlipidemia #5. Diabetes mellitus type 2 #6. Coronary artery disease status post right coronary artery stenting 2 in February 2019 #7. Peripheral vascular disease #8. Tobacco use, chronic and ongoing, currently down to 5-6 cigarettes a day, carried 57 pack year history #9. Chronic kidney disease stage IIIB Plan: The patient was seen and evaluated by Dr. Sellers. He is currently stable from the pulmonary and critical care standpoint. He'll be transferred out of the ICU today. Increase his activity as tolerated. We'll continue to follow make further recommendations based on his clinical status. I, the cosigning physician, performed a history & physical examination of the patient. Lungs sounds are clear. Maintaining good O2 saturations in the 90s on room air. I discussed the assessment and plan of care with my nurse practitioner, Sophie Dominguez. I attest to the above note as dictated by her.
--- NOTE | 2019-05-10 13:33 | P.CONS ---
History of Present Illness - Reason for Consult Consult date: 05/10/19 Medical management - History of Present Illness This is a 69-year-old male patient of Dr. Pickett with past medical history of hypertension, hyperlipidemia, coronary artery disease status post 2 stents, tobacco use and dependence, abdominal aortic aneurysm. Patient was brought into the hospital under the care of Dr. Selby status post endovascular aortic repair with aortic modified ovation IX unibody graft, attempted revascularization of the left common iliac artery, right femoral to left femoral artery bypass. Patient was ultimately transferred to the intensive care unit where he is now waiting for a cardiac stepdown bed. Patient has been hemodynamically stable. He is complaining of pain in the lower abdomen. Sexton is to be removed today. Patient denies any chest pain or shortness of breath. satellite project site monitor has been a sinus rhythm with occasional PACs. Review of Systems All systems: negative Constitutional: Denies chills, Denies fatigue, Denies fever, Denies poor appetite Eyes: denies blurred vision, denies pain Ears, nose, mouth and throat: Denies dysphagia, Denies headache, Denies nasal congestion, Denies nasal discharge, Denies sore throat, Denies vertigo Cardiovascular: Denies chest pain, Denies shortness of breath, Denies syncope Respiratory: Denies cough, Denies cough with sputum, Denies dyspnea, Denies excessive sputum, Denies hemoptysis, Denies home oxygen, Denies wheezing Gastrointestinal: Reports abdominal pain, Denies diarrhea, Denies nausea, Denies vomiting Genitourinary: Denies dysuria, Denies urinary retention (sexton in place) Musculoskeletal: Denies frequent falls, Denies gait dysfunction, Denies muscle weakness, Denies myalgias Integumentary: Reports wounds, Denies pruritus, Denies rash Neurological: Denies change in mentation, Denies confusion, Denies numbness, Denies seizures, Denies weakness Psychiatric: Denies anxiety, Denies depression Endocrine: Denies fatigue, Denies weight change Past Medical History Past Medical History: Coronary Artery Disease (CAD), Hyperlipidemia, Hypertension Additional Past Medical History / Comment(s): aortic aneurysm, hx ulcer 30 yrs ago, "borderline cholesterol", History of Any Multi-Drug Resistant Organisms: None Reported Past Surgical History: Heart Catheterization With Stent, Orthopedic Surgery Additional Past Surgical History / Comment(s): RT KNEE ARTHROSCOPY, JUAN CATARACTS, two cardiac stents, endovascular aortic unibody with femoral to femoral bypass Past Anesthesia/Blood Transfusion Reactions: No Reported Reaction Date of Last Stent Placement:: 03/10/19 Smoking Status: Current every day smoker Additional Past Alcohol Use History / Comment(s): Patient is a smoker one and a half packs per day for 56 years and recently cut back to 5 cigarettes. He denies any marijuana, alcohol use. He was home with his . - Past Family History Sister(s) Family Medical History: Cancer Additional Family Medical History / Comment(s): Patient is a total of 5 sisters. One has history of colon cancer, one has history of skin cancer. Other sisters have no major medical problems. Father Family Medical History: Cancer Additional Family Medical History / Comment(s): Father at age 68 from lung cancer with metastatic disease to the brain. He was a heavy smoker. Also had history of prostate cancer. Patient has a paternal uncle from an abdominal aortic aneurysm. Brother(s) Family Medical History: Cancer Additional Family Medical History / Comment(s): Patient has total of 3 brothers, one brother that has from a brain tumor at age 63. Mother Family Medical History: Deep Vein Thrombosis (DVT) Additional Family Medical History / Comment(s): Mother at age 93 from old age. Son(s) Additional Family Medical History / Comment(s): Patient has one son who is overweight with osteoarthritis. No coronary artery disease. Medications and Allergies Home Medications Medication Instructions Recorded Confirmed Type PARoxetine [Paxil] 20 mg PO DAILY 09/30/17 05/09/19 History Aspirin [Adult Low Dose Aspirin EC] 81 mg PO DAILY 02/28/19 05/09/19 History Lisinopril [Zestril] 10 mg PO HS 02/28/19 05/09/19 History amLODIPine [Norvasc] 5 mg PO DAILY 02/28/19 05/09/19 History Clopidogrel [Plavix] 75 mg PO DAILY #90 tab 03/03/19 05/09/19 Rx Nitroglycerin Sl Tabs [Nitrostat] 0.4 mg SUBLINGUAL Q5M PRN #25 tab 03/03/19 05/09/19 Rx Rosuvastatin Calcium [Crestor] 5 mg PO DAILY 05/03/19 05/09/19 History Allergies Allergy/AdvReac Type Severity Reaction Status Date / Time codeine Allergy Rash/Hives Verified 05/09/19 07:56 Physical Exam Vitals: Vital Signs Temp Pulse Pulse Resp BP BP BP 05/10/19 11:00 62 18 106/55 05/10/19 10:00 57 L 12 106/57 05/10/19 09:00 63 14 95/50 05/10/19 08:00 98.1 F 71 22 102/59 05/10/19 07:00 66 15 05/10/19 06:00 68 11 L 05/10/19 05:00 58 L 10 L 05/10/19 04:00 97.8 F 64 10 L 110/60 05/10/19 03:00 57 L 14 05/10/19 02:00 59 L 13 106/57 05/10/19 01:00 59 L 12 05/10/19 00:00 98.5 F 56 L 0 L 05/09/19 23:12 62 13 05/09/19 23:00 62 14 95/60 05/09/19 22:00 62 15 93/57 05/09/19 21:00 67 14 113/59 05/09/19 20:00 97.4 F L 64 13 05/09/19 19:00 63 12 93/59 05/09/19 18:00 65 12 109/60 05/09/19 17:00 59 L 12 93/54 05/09/19 16:43 97.5 F L 123/49 05/09/19 16:30 53 L 10 L 93/54 05/09/19 16:00 53 L 9 L 97/51 05/09/19 15:22 50 L 16 99/54 100/36 05/09/19 15:12 46 L 16 81/43 93/54 05/09/19 14:45 54 L 14 82/54 92/38 05/09/19 14:30 55 L 14 90/59 102/41 05/09/19 14:13 97.0 F L 57 L 16 99/55 100/40 Pulse Ox 05/10/19 11:00 96 05/10/19 10:00 97 05/10/19 09:00 95 05/10/19 08:00 94 L 05/10/19 07:00 96 05/10/19 06:00 96 05/10/19 05:00 97 05/10/19 04:00 95 05/10/19 03:00 97 05/10/19 02:00 97 05/10/19 01:00 98 05/10/19 00:00 98 05/09/19 23:12 96 05/09/19 23:00 96 05/09/19 22:00 96 05/09/19 21:00 96 05/09/19 20:00 98 05/09/19 19:00 97 05/09/19 18:00 96 05/09/19 17:00 96 05/09/19 16:43 05/09/19 16:30 05/09/19 16:00 98 05/09/19 15:22 97 05/09/19 15:12 96 05/09/19 14:45 98 05/09/19 14:30 97 05/09/19 14:13 99 Intake and Output 05/09/19 05/10/19 05/10/19 22:59 06:59 14:59 Intake Total 725 1000 625 Output Total 330 350 105 Balance 395 650 520 Intake: IV 725 1000 625 Lactated Ringers 1,000 ml 725 1000 625 @ 100 mls/hr IV .Q10H [facility] Rx#:[id number] Output: Urine 330 350 105 Other: Voiding Method Indwelling Catheter Indwelling Catheter Indwelling Catheter Weight 75.7 kg ABP, PAP, CO, CI - Last 8 Hours Arterial Blood Pressure 130/43 Arterial Blood Pressure 118/44 Arterial Blood Pressure 114/45 Arterial Blood Pressure 117/49 Arterial Blood Pressure 136/54 Arterial Blood Pressure 124/50 Arterial Blood Pressure 116/45 Gen: This is a 69-year-old male. He is sitting in recliner appears to be comfortable and in no acute distress. He is complaining of pain to the lower abdomen and pelvic area. is at bedside. HEENT: Head is atraumatic, normocephalic. Pupils equal, round. Sclerae is anicteric. NECK: Supple. No JVD. No lymphadenopathy. No thyromegaly. LUNGS: Clear to auscultation. Diminished bilaterally. No wheezes or rhonchi. No intercostal retractions. HEART: Regular rate and rhythm. No murmur. ABDOMEN: Soft. Bowel sounds are present. No masses. No tenderness. Sexton catheter with clear alanna urine. EXTREMITIES: No pedal edema. No calf tenderness. Prevana wound vacs in place to the bilateral groins. NEUROLOGICAL: Patient is awake, alert and oriented x3. Cranial nerves 2 through 12 are grossly intact. Results CBC & Chem 7: 05/10/19 04:10 05/10/19 04:10 Labs: Abnormal Lab Results - Last 24 Hours (Table) 05/08/19 05/09/19 05/09/19 Range/Units 14:46 15:06 15:06 RBC 2.80 L (4.30-5.90) m/uL Hgb 8.8 L D (13.0-17.5) gm/dL Hct 25.5 L (39.0-53.0) % Plt Count 100 L (150-450) k/uL Lymphocytes # 0.8 L (1.0-4.8) k/uL Sodium 136 L (137-145) mmol/L Chloride 117 H (98-107) mmol/L Carbon Dioxide 17 L (22-30) mmol/L BUN 23 H (9-20) mg/dL Creatinine (0.66-1.25) mg/dL Glucose 109 H (74-99) mg/dL POC Glucose (mg/dL) (75-99) mg/dL Calcium 6.4 L* (8.4-10.2) mg/dL ALT (21-72) U/L Total Protein (6.3-8.2) g/dL Albumin (3.5-5.0) g/dL Crossmatch See Detail 05/09/19 05/10/19 05/10/19 Range/Units 15:53 04:10 04:10 RBC 3.24 L (4.30-5.90) m/uL Hgb 10.0 L (13.0-17.5) gm/dL Hct 29.6 L (39.0-53.0) % Plt Count 113 L (150-450) k/uL Lymphocytes # 0.8 L (1.0-4.8) k/uL Sodium (137-145) mmol/L Chloride (98-107) mmol/L Carbon Dioxide (22-30) mmol/L BUN 28 H (9-20) mg/dL Creatinine 1.43 H (0.66-1.25) mg/dL Glucose 122 H (74-99) mg/dL POC Glucose (mg/dL) 125 H (75-99) mg/dL Calcium 8.3 L (8.4-10.2) mg/dL ALT 17 L (21-72) U/L Total Protein 4.6 L (6.3-8.2) g/dL Albumin 2.7 L (3.5-5.0) g/dL Crossmatch Assessment and Plan Plan: 1. Abdominal aortic aneurysm status post endovascular aortic unibody with femoral to femoral bypass. Patient is doing well postop. He has been hemodynamically stable. Continue aspirin 81 mg daily, Plavix 75 mg daily. 2. Hypertension. Continue amlodipine 5 mg daily, lisinopril 10 mg at bedtime. 3. Hyperlipidemia. Continue statin. 4. History of coronary artery disease status post stenting, stable. No complaints of chest pain. 5. Tobacco use and dependence. Smoking cessation. 6. Recurrent depression. Continue Paxil 20 mg daily. Discharge plan: Home in the next 24 hrs. Impression and plan of care have been directed as dictated by the signing physician. Marci Quintero nurse practitioner acting as scribe for signing physician.
[2019-05-10] MEDS: TAMSULOSIN 0.4 MG CAP.ER.24H PO SCH (18:25)
[2019-05-10] MEDS: LISINOPRIL 10 MG TAB PO SCH (21:01)
[2019-05-11] MEDS: LACTATED RINGERS 1,000 ML IV SCH ×2 (04:31→13:14)
--- NOTE | 2019-05-11 07:47 | CDI ---
Documentation Clarification Form Date: 05/10/2019 9:56:00 AM From: Venessa AustinAroraROHIT ruby, CCDS Admit Date: 05/09/2019 7:34:00 AM Patient Name: Salvatore Gtz Visit Number: [id number] Discharge Date: ATTENTION: The Clinical Documentation Specialists (CDI) and [facility] Coding Staff appreciate your assistance in clarifying documentation. Please respond to the clarification below the line at the bottom and electronically sign. The CDI & [facility] Coding staff will review the response and follow-up if needed. Please note: Queries are made part of the Legal Health Record. If you have any questions, please contact the author of this message via ITS. Dr. Mitchel Selby: Per the procedure note: "...patient became hypotensive after crossing through the iliac lesion. At this time it was determined that he might have had a small perforation therefore a pigtail catheter was placed and angiogram was obtained demonstrating no evidence of extravasation but patient was still hypotensive and therefore a aortic balloon was placed for occlusion." Per the medical consult: "Postoperative hypotension, improved with IV fluids, postop blood work is pending." Patients Admitting Diagnosis: Totally occluded left common iliac artery & large infrarenal abdominal aortic aneurysm. Post-Operative Diagnosis: Same Procedure performed: Endovascular aortic unibody with femoral to femoral bypass, Chronic occlusion left common iliac artery History/Risk Factors: Hx AAA, Hypertension, Hyperlipidemia, DM II, CAD w/stent to RCA, PVD, Smoker, CKD III. Clinical Indicators: Per above postoperative notes. Treatment: IV fluids intraoperatively & posteroperatively. IV Zofran, IV fluids, IV Cefazolin, IV heparin, IV Lactated Ringers, IV Dilaudid In order to accurately reflect this patients severity of illness, please clarify if the post-operative diagnosis is: An expected post-procedural or post-surgical condition, please specify reason or cause. An unexpected post-procedural or post-surgical condition related to surgical care (a complication of care), please specify cause if known. An unexpected post-procedural or post-surgical condition, related to the patients underlying medical comorbidities Other, please specify ____ Unable to determine (Last Revision: November 2018) ___unable to determine MTDD
--- NOTE | 2019-05-11 07:59 | P.PN ---
Subjective Progress Note Date: 05/11/19 Principal diagnosis: Test post repair abdominal aortic aneurysm with aorta uni-iliac stent graft and femoral-femoral bypass grafting. Patient is evaluated today, the second postoperative day status post stent graft repair of abdominal aortic aneurysm. Over the past 24 hours the patient has had some difficulty voiding requiring a Belcher catheter to be placed. At that time he was also placed on Flomax. Patient denies any nausea. He has incisional pain appropriate for procedure. He denies any leg pain. He was able to get to a chair yesterday. Physical examination revealed the patient's abdomen to be soft and benign. Normal active bowel sounds are noted. Surgical wounds are covered by Prevena negative pressure system. There is no evidence of cellulitis surrounding it either wound. External genitalia demonstrate some ecchymosis consistent with surgical procedure. Femoral, popliteal and posterior tibial pulses are intact bilaterally. There is no leg edema Surgically the patient is doing well. We will decrease IV fluids as his urine output has been more than adequate and his vitals are stable. We will follow room recommendations of physical therapy for ambulation. Hopefully the patient can be dismissed in the next 24 hours or so. Objective - Vital Signs Vital signs: Vital Signs Temp 98.2 F 05/11/19 04:00 Pulse 71 05/11/19 04:00 Resp 10 L 05/11/19 04:00 BP 120/57 05/11/19 04:00 Pulse Ox 96 05/11/19 04:00 Intake & Output 05/10/19 05/11/19 05/11/19 18:59 06:59 18:59 Intake Total 1500 1500 125 Output Total 155 590 Balance 1345 910 125 Weight 73.6 kg Intake: IV 1500 Lactated Ringers 1,000 ml 1500 @ 100 mls/hr IV .Q10H [facility] Rx#:[id number] Intake, IV Titration 1500 125 Amount Lactated Ringers 1,000 ml 1500 125 @ 125 mls/hr IV .Q8H [facility] Rx#:[id number] Output: Urine 155 590 Other: Voiding Method Urinal Indwelling Catheter ABP, PAP, CO, CI - Last Documented Arterial Blood Pressure 130/43 - Labs CBC & Chem 7: 05/10/19 04:10 05/10/19 04:10
[2019-05-11] MEDS: HYDROmorphone 0.5 MG/0.5 ML SYRINGE IVP PRN ×2 (08:26→13:05)
[2019-05-11] MEDS: ATORVASTATIN 10 MG TAB PO SCH (08:27)
[2019-05-11] MEDS: TAMSULOSIN 0.4 MG CAP.ER.24H PO SCH (08:27)
[2019-05-11] MEDS: amLODIPine 5 MG TAB PO SCH (08:27)
[2019-05-11] MEDS: CLOPIDOGREL 75 MG TAB PO SCH (08:27)
[2019-05-11] MEDS: ASPIRIN 81 MG PO SCH (08:27)
[2019-05-11] MEDS: PARoxetine 20 MG TAB PO SCH (08:27)
--- NOTE | 2019-05-11 09:56 | P.PN ---
Subjective Progress Note Date: 05/11/19 Principal diagnosis: Abdominal aortic aneurysm status post endovascular aortic repair. This is a 69-year-old white male patient of Dr. Pickett with past medical history of hypertension, hyperlipidemia, diabetes mellitus, coronary artery disease with recent stenting of the right coronary artery. Patient was recently diagnosed with a large abdominal aortic aneurysm on the CT of the abdomen in December 2018 which was done as part of routine physical, which revealed infrarenal abdominal aortic aneurysm measuring 6.3 x 5.0 cm, and this was a bilobed fusiform aneurysm, the more inferior aneurysm measuring 3.7 x 3.5 cm. Patient complained of occasional left leg discomfort with walking. Patient was referred to vascular surgery and today on 05/09/2019 patient underwent endovascular aortic repair with a right unibody graft, attempted revascularization of the left common iliac artery which was 100% occluded and right femoral to left femoral artery bypass. Following the recovery phase patient is seen in the intensive care unit. Resting comfortably in bed, did experience some transient hypotension in the recovery and IV fluids were given, with improvement of patient's blood pressure. Postop blood work including CBC and BMP are pending. Patient is on a couple liters of O2 per nasal cannula, his pulse ox of 97, he is afebrile, blood pressure is 100/36, has improved with IV fluids. The patient is seen today 05/10/2019 in follow-up in the intensive care unit. He is currently sitting up in a chair at the bedside. Awake and alert in no acute distress. He is having some lower abdominal and pelvis discomfort. Incisions clean dry well approximated. Dressings intact. Peripheral pulses are intact. No shortness of breath, cough or congestion. Currently on room air. Afebrile. Hemodynamically stable. White count 7.0. Hemoglobin 10.0. Creatinine 1.43. Continued on lactated Ringer's at 125 ML's per hour. Patient is seen today 05/11/2019 in follow-up in the intensive care unit. He is currently resting fairly comfortably in bed. Awake and alert in no acute distress. Still having some bilateral groin discomfort. Some lower abdominal discomfort. No shortness of breath, cough or congestion. He is maintaining good O2 saturations in the 90s on room air. He's been afebrile. Hemodynamically stable. Lower extremity peripheral pulses intact. Prevena ne gative pressure system to bilateral groins intact. Objective - Vital Signs Vital signs: Vital Signs Temp 98.2 F 05/11/19 04:00 Pulse 71 05/11/19 04:00 Resp 10 L 05/11/19 04:00 BP 120/57 05/11/19 04:00 Pulse Ox 96 05/11/19 04:00 Intake & Output 05/10/19 05/11/19 05/11/19 18:59 06:59 18:59 Intake Total 1500 1500 125 Output Total 155 590 Balance 1345 910 125 Weight 73.6 kg Intake: IV 1500 Lactated Ringers 1,000 ml 1500 @ 100 mls/hr IV .Q10H [facility] Rx#:[id number] Intake, IV Titration 1500 125 Amount Lactated Ringers 1,000 ml 1500 125 @ 125 mls/hr IV .Q8H [facility] Rx#:[id number] Output: Urine 155 590 Other: Voiding Method Urinal Indwelling Catheter ABP, PAP, CO, CI - Last Documented Arterial Blood Pressure 130/43 - Exam GENERAL EXAM: Alert, pleasant, 69-year-old gentleman, on room air comfortable in no apparent distress. HEAD: Normocephalic/atraumatic. EYES: Normal reaction of pupils, equal size. Conjunctiva pink, sclera white. NOSE: Clear with pink turbinates. THROAT: No erythema or exudates. NECK: No masses, no JVD, no thyroid enlargement, no adenopathy. CHEST: No chest wall deformity. Symmetrical expansion. LUNGS: Equal air entry with no crackles, wheeze, rhonchi or dullness. CVS: Regular rate and rhythm, normal S1 and S2, no gallops, no murmurs, no rubs ABDOMEN: Soft, nontender. No hepatosplenomegaly, normal bowel sounds, no guarding or rigidity. EXTREMITIES: No clubbing, no edema, no cyanosis, 2+ pulses and upper and lower extremities. Bilateral groin incisions are covered with Prevena negative pressure system, clean dry and intact, pedal pulses palpable MUSCULOSKELETAL: Muscle strength and tone normal. SPINE: No scoliosis or deformity SKIN: No rashes CENTRAL NERVOUS SYSTEM: No focal deficits, tone is normal in all 4 extremities. PSYCHIATRIC: Alert and oriented -3. Appropriate affect. Intact judgment and insight. - Labs CBC & Chem 7: 05/10/19 04:10 05/10/19 04:10 Assessment and Plan Assessment: Assessment: #1. Infrarenal abdominal aortic aneurysm with left common iliac artery occlusion, status post endovascular aortic repair with Uni body graft, attempted revascularization of the left common iliac artery and right serum to left femoral artery bypass. Postop day #2. #2. Postoperative hypotension, improved with IV fluids, postop hemoglobin 8.8. Currently 10.0. No transfusion required. #3. Hypertension #4. Hyperlipidemia #5. Diabetes mellitus type 2 #6. Coronary artery disease status post right coronary artery stenting 2 in February 2019 #7. Peripheral vascular disease #8. Tobacco use, chronic and ongoing, currently down to 5-6 cigarettes a day, carried 57 pack year history #9. Chronic kidney disease stage IIIB Plan: The patient was seen and evaluated by Dr. Sellers. He is stable from the pulmonary and critical care standpoint. Increase his activity as tolerated. We'll continue to follow and make further recommendations based on his clinical status. I, the cosigning physician, performed a history & physical examination of the patient. Lungs sounds are clear. Maintaining good O2 saturations in the 90s on room air. I discussed the assessment and plan of care with my nurse practitioner, Sophie Dominguez. I attest to the above note as dictated by her.
--- NOTE | 2019-05-11 13:42 | P.PN ---
Subjective Progress Note Date: 05/11/19 This is a 69-year-old male patient of Dr. Pickett with past medical history of hypertension, hyperlipidemia, coronary artery disease status post 2 stents, tobacco use and dependence, abdominal aortic aneurysm. Patient was brought into the hospital under the care of Dr. Selby status post endovascular aortic repair with aortic modified ovation IX unibody graft, attempted revascularization of the left common iliac artery, right femoral to left femoral artery bypass. Patient was ultimately transferred to the intensive care unit where he is now waiting for a cardiac stepdown bed. Patient has been hemodynamically stable. He is complaining of pain in the lower abdomen. Sexton is to be removed today. Patient denies any chest pain or shortness of breath. shelter monitor has been a sinus rhythm with occasional PACs. 05/11: Patient remains in intensive care unit. He states he just has pain to the lower abdomen/groin areas when he coughs. Prevana wound vacs remain in place to bilateral groin wounds. He has been afebrile, blood pressure 119/69, pulse ox 94% on room air, heart rate 70s. No repeat lab work today. Urine output is improved today. Sexton catheter remains in place. The patient is eating 50% of his meals. Anticipate probable discharge tomorrow. Review of Systems Constitutional: Denies chills, Denies fatigue, Denies fever, reports poor appetite Eyes: denies blurred vision, denies pain Ears, nose, mouth and throat: Denies dysphagia, Denies headache, Denies nasal congestion, Denies nasal discharge, Denies sore throat, Denies vertigo Cardiovascular: Denies chest pain, Denies shortness of breath, Denies syncope Respiratory: Denies cough, Denies cough with sputum, Denies dyspnea, Denies excessive sputum, Denies hemoptysis, Denies home oxygen, Denies wheezing Gastrointestinal: Reports abdominal pain, Denies diarrhea, Denies nausea, Denies vomiting Genitourinary: Denies dysuria, Denies urinary retention (sexton in place) Musculoskeletal: Denies frequent falls, Denies gait dysfunction, Denies muscle weakness, Denies myalgias Integumentary: Reports wounds, Denies pruritus, Denies rash Neurological: Denies change in mentation, Denies confusion, Denies numbness, Denies seizures, Denies weakness Psychiatric: Denies anxiety, Denies depression Endocrine: Denies fatigue, Denies weight change Objective - Vital Signs Vital signs: Vital Signs Temp 98.2 F 05/11/19 04:00 Pulse 71 05/11/19 04:00 Resp 10 L 05/11/19 04:00 BP 120/57 05/11/19 04:00 Pulse Ox 96 05/11/19 04:00 Intake & Output 05/10/19 05/11/19 05/11/19 18:59 06:59 18:59 Intake Total 1500 1500 125 Output Total 155 590 Balance 1345 910 125 Weight 73.6 kg Intake: IV 1500 Lactated Ringers 1,000 ml 1500 @ 100 mls/hr IV .Q10H [facility] Rx#:[id number] Intake, IV Titration 1500 125 Amount Lactated Ringers 1,000 ml 1500 125 @ 125 mls/hr IV .Q8H [facility] Rx#:[id number] Output: Urine 155 590 Other: Voiding Method Urinal Indwelling Catheter ABP, PAP, CO, CI - Last Documented Arterial Blood Pressure 130/43 - Exam Gen: This is a 69-year-old male. He is sitting in recliner appears to be comfortable and in no acute distress. HEENT: Head is atraumatic, normocephalic. Pupils equal, round. Sclerae is anicteric. NECK: Supple. No JVD. No lymphadenopathy. No thyromegaly. LUNGS: Clear to auscultation. Diminished bilaterally. No wheezes or rhonchi. No intercostal retractions. HEART: Regular rate and rhythm. No murmur. ABDOMEN: Soft. Bowel sounds are present. No masses. No tenderness. Sexton catheter with clear alanna urine. EXTREMITIES: No pedal edema. No calf tenderness. Prevana wound vacs in place to the bilateral groins. No surrounding erythema. NEUROLOGICAL: Patient is awake, alert and oriented x3. Cranial nerves 2 through 12 are grossly intact. - Labs CBC & Chem 7: 05/10/19 04:10 05/10/19 04:10 Assessment and Plan Plan: 1. Abdominal aortic aneurysm status post endovascular aortic unibody with femoral to femoral bypass. Patient is doing well postop. He has been hemo dynamically stable. Continue aspirin 81 mg daily, Plavix 75 mg daily. 2. Hypertension. Continue amlodipine 5 mg daily, lisinopril 10 mg at bedtime. 3. Hyperlipidemia. Continue statin. 4. History of coronary artery disease status post stenting, stable. No complaints of chest pain. 5. Tobacco use and dependence. Smoking cessation. 6. Recurrent depression. Continue Paxil 20 mg daily. Discharge plan: Home in the next 24 hrs. Impression and plan of care have been directed as dictated by the signing physician. Marci Quintero nurse practitioner acting as scribe for signing physician.
[2019-05-11] MEDS: LISINOPRIL 10 MG TAB PO SCH (20:13)
[2019-05-12] MEDS: HYDROmorphone 0.5 MG/0.5 ML SYRINGE IVP PRN ×2 (02:13→09:43)
[2019-05-12 05:15] VITALS: RESP 16
--- NOTE | 2019-05-12 08:23 | IR ---
Fluoroscopy HISTORY: Aortic aneurysm 41.4 minutes fluoroscopy time supplied to the referring clinician. 1142 intraoperative C-arm images document the procedure. See dictated report from vascular surgery.
[2019-05-12] MEDS: CLOPIDOGREL 75 MG TAB PO SCH (09:44)
[2019-05-12] MEDS: ATORVASTATIN 10 MG TAB PO SCH (09:44)
[2019-05-12] MEDS: PARoxetine 20 MG TAB PO SCH (09:44)
[2019-05-12] MEDS: amLODIPine 5 MG TAB PO SCH (09:44)
[2019-05-12] MEDS: ASPIRIN 81 MG PO SCH (09:44)
[2019-05-12] MEDS: TAMSULOSIN 0.4 MG CAP.ER.24H PO SCH (09:44)
[2019-05-12] MEDS ORDERED: traMADol 50 MG TAB PO PRN (12:12)
--- NOTE | 2019-05-12 12:13 | P.PN ---
Subjective Progress Note Date: 05/12/19 Principal diagnosis: Abdominal aortic aneurysm status post endovascular aortic repair This is a 69-year-old white male patient of Dr. Pickett with past medical history of hypertension, hyperlipidemia, diabetes mellitus, coronary artery disease with recent stenting of the right coronary artery. Patient was recently diagnosed with a large abdominal aortic aneurysm on the CT of the abdomen in December 2018 which was done as part of routine physical, which revealed infrarenal abdominal aortic aneurysm measuring 6.3 x 5.0 cm, and this was a bilobed fusiform aneurysm, the more inferior aneurysm measuring 3.7 x 3.5 cm. Patient complained of occasional left leg discomfort with walking. Patient was referred to vascular surgery and today on 05/09/2019 patient underwent endovascular aortic repair with a right unibody graft, attempted revascularization of the left common iliac artery which was 100% occluded and right femoral to left femoral artery bypass. Following the recovery phase patient is seen in the intensive care unit. Resting comfortably in bed, did experience some transient hypotension in the recovery and IV fluids were given, with improvement of patient's blood pressure. Postop blood work including CBC and BMP are pending. Patient is on a couple liters of O2 per nasal cannula, his pulse ox of 97, he is afebrile, blood pressure is 100/36, has improved with IV fluids. The patient is seen today 05/10/2019 in follow-up in the intensive care unit. He is currently sitting up in a chair at the bedside. Awake and alert in no acute distress. He is having some lower abdominal and pelvis discomfort. Incisions clean dry well approximated. Dressings intact. Peripheral pulses are intact. No shortness of breath, cough or congestion. Currently on room air. Afebrile. Hemodynamically stable. White count 7.0. Hemoglobin 10.0. Creatinine 1.43. Continued on lactated Ringer's at 125 ML's per hour. Patient is seen today 05/11/2019 in follow-up in the intensive care unit. He is currently resting fairly comfortably in bed. Awake and alert in no acute d istress. Still having some bilateral groin discomfort. Some lower abdominal discomfort. No shortness of breath, cough or congestion. He is maintaining good O2 saturations in the 90s on room air. He's been afebrile. Hemodynamically stable. Lower extremity peripheral pulses intact. Prevena neg ative pressure system to bilateral groins intact. On 05/12/2019 patient seen in follow-up on selective care unit, he sitting up in the chair, in no acute distress, no pulmonary complaints, he denies any dyspnea, denies any chest pain, he is on room air, with a pulse ox of 96%, no fever or chills. No new labs today, when he chest x-ray. No acute events overnight, bilateral groin incisions are still covered with Prevena wound vacs. From pulmonary perspective patient is stable Objective - Vital Signs Vital signs: Vital Signs Temp 98.3 F 05/12/19 08:20 Pulse 74 05/12/19 11:00 Resp 16 05/12/19 11:00 BP 144/66 05/12/19 11:00 Pulse Ox 96 05/12/19 11:00 Intake & Output 05/11/19 05/12/19 05/12/19 18:59 06:59 18:59 Intake Total 1285 60 Output Total 1000 750 Balance 285 -750 60 Weight 73 kg Intake: Intake, IV Titration 625 Amount Lactated Ringers 1,000 ml 625 @ 125 mls/hr IV .Q8H [facility] Rx#:[id number] Oral 660 60 Output: Urine 1000 750 Other: Voiding Method Indwelling Catheter Indwelling Catheter Indwelling Catheter ABP, PAP, CO, CI - Last Documented Arterial Blood Pressure 130/43 - Exam GENERAL EXAM: Alert, pleasant, 69-year-old white male, on room air, with a pulse ox 96% comfortable in no apparent distress. HEAD: Normocephalic/atraumatic. EYES: Normal reaction of pupils, equal size. Conjunctiva pink, sclera white. NOSE: Clear with pink turbinates. THROAT: No erythema or exudates. NECK: No masses, no JVD, no thyroid enlargement, no adenopathy. CHEST: No chest wall deformity. Symmetrical expansion. LUNGS: Equal air entry with no crackles, wheeze, rhonchi or dullness. CVS: Regular rate and rhythm, normal S1 and S2, no gallops, no murmurs, no rubs ABDOMEN: Soft, nontender. No hepatosplenomegaly, normal bowel sounds, no guarding or rigidity. EXTREMITIES: No clubbing, no edema, no cyanosis, 2+ pulses and upper and lower extremities. Bilateral groin incisions covered with Prevena wound vacs SPINE: No scoliosis or deformity SKIN: No rashes CENTRAL NERVOUS SYSTEM: Alert and oriented -3. No focal deficits, tone is normal in all 4 extremities. PSYCHIATRIC: Alert and oriented -3. Appropriate affect. Intact judgment and insight. - Labs CBC & Chem 7: 05/10/19 04:10 05/10/19 04:10 Assessment and Plan Plan: Assessment: #1. Infrarenal abdominal aortic aneurysm with left common iliac artery occlusion, status post endovascular aortic repair with Uni body graft, attempted revascularization of the left common iliac artery and right serum to left femoral artery bypass. Postop day 3 #2. Postoperative hypotension, improved with IV fluids #3. Hypertension #4. Hyperlipidemia #5. Diabetes mellitus type 2 #6. Coronary artery disease status post right coronary artery stenting 2 in February 2019 #7. Peripheral vascular disease #8. Tobacco use, chronic and ongoing, currently down to 5-6 cigarettes a day, carried 57 pack year history #9. Chronic kidney disease stage IIIB Plan: Patient denies any pulmonary complaints, vital signs are stable, patient is up in the chair, tolerating activity, no acute events overnight, from pulmonary perspective will sign off and follow on as-needed basis. I performed a history & physical examination of the patient and discussed their management with my nurse practitioner, Jaky Rao. I reviewed the nurse practitioner's note and agree with the documented findings and plan of care. Lung sounds are positive for clear breath sounds. The findings and the impression was discussed with the patient. I attest to the documentation by the nurse practitioner. Time with Patient: Less than 30
--- NOTE | 2019-05-12 15:06 | P.PN ---
Subjective Progress Note Date: 05/12/19 This is a 69-year-old male patient of Dr. Pickett with past medical history of hypertension, hyperlipidemia, coronary artery disease status post 2 stents, tobacco use and dependence, abdominal aortic aneurysm. Patient was brought into the hospital under the care of Dr. Selby status post endovascular aortic repair with aortic modified ovation IX unibody graft, attempted revascularization of the left common iliac artery, right femoral to left femoral artery bypass. Patient was ultimately transferred to the intensive care unit where he is now waiting for a cardiac stepdown bed. Patient has been hemodynamically stable. He is complaining of pain in the lower abdomen. Sexton is to be removed today. Patient denies any chest pain or shortness of breath. radiation monitor has been a sinus rhythm with occasional PACs. 05/11: Patient remains in intensive care unit. He states he just has pain to the lower abdomen/groin areas when he coughs. Prevana wound vacs remain in place to bilateral groin wounds. He has been afebrile, blood pressure 119/69, pulse ox 94% on room air, heart rate 70s. No repeat lab work today. Urine output is improved today. Sexton catheter remains in place. The patient is eating 50% of his meals. Anticipate probable discharge tomorrow. 05/12: Patient is seen on the cardiac stepdown unit. He has been afebrile, heart rate 72, blood pressure 118/60, pulse ox 93% on room air. radiation monitor is a sinus rhythm with occasional PACs. Patient continues to have pain and the lower abdomen groin areas. He is eating 25% to 75% of his meals. Sexton catheter has been replaced as patient had retention. He has been started on Flomax. Nursing to remove Sexton today and monitor for retention. Incentive spirometry added which patient will need to take home. He continues to have pain to the lower abdomen groin areas and tramadol will be added. Prescription provided and opioid start talking form has been completed. Map score 000. Patient will continue Flomax until rechecked by Dr. Pickett in the office. Patient is cleared from medicine for discharge home today. Review of Systems Constitutional: Denies chills, Denies fatigue, Denies fever, reports poor appetite Eyes: denies blurred vision, denies pain Ears, nose, mouth and throat: Denies dysphagia, Denies headache, Denies nasal congestion, Denies nasal discharge, Denies sore throat, Denies vertigo Cardiovascular: Denies chest pain, Denies shortness of breath, Denies syncope Respiratory: Denies cough, Denies cough with sputum, Denies dyspnea, Denies excessive sputum, Denies hemoptysis, Denies home oxygen, Denies wheezing Gastrointestinal: Reports abdominal pain, Denies diarrhea, Denies nausea, Denies vomiting reports pelvic/groin pain bilaterally Genitourinary: Denies dysuria, Denies urinary retention (sexton replaced) Musculoskeletal: Denies frequent falls, Denies gait dysfunction, Denies muscle weakness, Denies myalgias Integumentary: Reports wounds, Denies pruritus, Denies rash Neurological: Denies change in mentation, Denies confusion, Denies numbness, Denies seizures, Denies weakness Psychiatric: Denies anxiety, Denies depression Endocrine: Denies fatigue, Denies weight change Objective - Vital Signs Vital signs: Vital Signs Temp 98.3 F 05/12/19 08:20 Pulse 72 05/12/19 08:20 Resp 16 05/12/19 08:20 BP 118/60 05/12/19 08:20 Pulse Ox 93 L 05/12/19 08:20 Intake & Output 05/11/19 05/12/19 05/12/19 18:59 06:59 18:59 Intake Total 1285 60 Output Total 1000 750 Balance 285 -750 60 Weight 73 kg Intake: Intake, IV Titration 625 Amount Lactated Ringers 1,000 ml 625 @ 125 mls/hr IV .Q8H [facility] Rx#:[id number] Oral 660 60 Output: Urine 1000 750 Other: Voiding Method Indwelling Catheter Indwelling Catheter ABP, PAP, CO, CI - Last Documented Arterial Blood Pressure 130/43 - Exam Gen: This is a 69-year-old male. He is in bed and appears to be comfortable and in no acute distress. HEENT: Head is atraumatic, normocephalic. Pupils equal, round. Sclerae is anicteric. NECK: Supple. No JVD. No lymphadenopathy. No thyromegaly. LUNGS: Clear to auscultation. Diminished bilaterally. No wheezes or rhonchi. No intercostal retractions. HEART: Regular rate and rhythm. No murmur. ABDOMEN: Soft. Bowel sounds are present. No masses. No tenderness. Sexton catheter with clear alanna urine. EXTREMITIES: No pedal edema. No calf tenderness. Prevana wound vacs in place to the bilateral groins. No surrounding erythema. NEUROLOGICAL: Patient is awake, alert and oriented x3. Cranial nerves 2 through 12 are grossly intact. - Labs CBC & Chem 7: 05/10/19 04:10 05/10/19 04:10 Assessment and Plan Plan: 1. Abdominal aortic aneurysm status post endovascular aortic unibody with femoral to femoral bypass. Patient is doing well postop. He has been hemodynamically stable. Continue aspirin 81 mg daily, Plavix 75 mg daily. 2. Hypertension. Continue amlodipine 5 mg daily, lisinopril 10 mg at bedtime. 3. Hyperlipidemia. Continue statin. 4. History of coronary artery disease status post stenting, stable. No complaints of chest pain. 5. Tobacco use and dependence. Smoking cessation. 6. Recurrent depression. Continue Paxil 20 mg daily. 7. Urinary retention requiring Sexton catheter replacement. Sexton will be removed today and monitor until after supper or urinary retention. Flomax to be continued at home. Discharge plan: Home Impression and plan of care have been directed as dictated by the signing physician. Marci Quintero nurse practitioner acting as scribe for signing physician.
[2019-05-12 16:37] VITALS: BP 125/62; PULSE 72; TEMP 98
== END 2019-05-12 19:23 | disposition home or self-care (01) | DRG 269 ==
LOC: 2ORMAIN 07:34 → 2SICU 13:56 → 3SCARD 05-11 13:28
PROVIDERS: ADMIT Surgery; ATTEND Surgery
PROC: 04V03DZ Restriction of Abdominal Aorta with Intraluminal Device, Percutaneous Approach (ICD-10-PCS; principal; 2019-05-09 09:00)
PROC: 041K0JJ Bypass Right Femoral Artery to Left Femoral Artery with Synthetic Substitute, Open Approach (ICD-10-PCS; principal; 2019-05-09 09:00)
DX: I71.4 Abdominal aortic aneurysm, without rupture (principal); I74.5 Embolism and thrombosis of iliac artery; F33.9 Major depressive disorder, recurrent, unspecified; E11.22 Type 2 diabetes mellitus with diabetic chronic kidney disease; E11.51 Type 2 diabetes mellitus with diabetic peripheral angiopathy without gangrene; E78.5 Hyperlipidemia, unspecified; I12.9 Hypertensive chronic kidney disease with stage 1 through stage 4 chronic kidney disease, or unspecified chronic kidney disease; I25.10 Atherosclerotic heart disease of native coronary artery without angina pectoris; I95.9 Hypotension, unspecified; N18.3 Chronic kidney disease, stage 3 (moderate); Z79.02 Long term (current) use of antithrombotics/antiplatelets; Z79.82 Long term (current) use of aspirin; Z79.899 Other long term (current) drug therapy; Z80.1 Family history of malignant neoplasm of trachea, bronchus and lung; Z95.5 Presence of coronary angioplasty implant and graft; F17.210 Nicotine dependence, cigarettes, uncomplicated; Z98.42 Cataract extraction status, left eye; Z98.41 Cataract extraction status, right eye; Z80.0 Family history of malignant neoplasm of digestive organs; Z80.8 Family history of malignant neoplasm of other organs or systems; Z80.42 Family history of malignant neoplasm of prostate; Z88.5 Allergy status to narcotic agent; I70.223 Atherosclerosis of native arteries of extremities with rest pain, bilateral legs
CPT/HCPCS: 34705; 80048; 80053; 85025; 86850; 86900; 86901; 86920